=== PATIENT | male | born 1965 | race African-American/Black ===

== ENCOUNTER 2018-12-20 01:17 | Inpatient (IN) | payer BC, MEDICAID ==
[~2018-12-20] VITALS: Ht 170.2 cm; Wt 76.0 kg
[2018-12-20] MEDS ORDERED: ONDANSETRON 2MG/ML, 2ML ONE ×2 (01:37→14:22)
[2018-12-20] MEDS ORDERED: MORPHINE SULFATE 4 MG/ML, 1ML ONE (01:38)
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
[2018-12-20] MEDS ORDERED: ONDANSETRON 2MG/ML, 2ML IVPush ONE (02:00)
[2018-12-20] MEDS ORDERED: MORPHINE SULFATE 4 MG/ML, 1ML IVPush PRN (02:00)
[2018-12-20] MEDS ORDERED: SODIUM CHLORIDE FLUSH 10ML SYR IVF ONE (02:00)
[2018-12-20] MEDS ORDERED: AMPICILLIN/SULBACTAM 3 GM in SODIUM CHLORIDE 0.9% 100 ML IV ONE (02:30)
--- NOTE | 2018-12-20 02:57 | NUR ---
PT RESTING CALMLY. REPORTS IMPROVEMENT IN PAIN WITH MEDICATIONS. SPO2 >90% ON 2L BY NC. PT HYPERTENSIVE, NO HX OF SAME. DENIES KOENIG/CP. ERP AWARE. CHART UP FOR RECHECK
--- NOTE | 2018-12-20 03:12 | NUR ---
ABX INITIATED. PT UPDATED TO POC (ADMIT) AND DEMONSTRATES UNDERSTANDING.
[2018-12-20] MEDS ORDERED: SODIUM CHLORIDE 0.9% 1,000 ML IV SCH (04:14)
[2018-12-20 04:18] VITALS: BP 162/101
[2018-12-20] MEDS: morphine SULFATE 10 MG/ML, 1ML IVPush PRN ×5 (04:46→18:02)
[2018-12-20 05:40] VITALS: BP 177/112
[2018-12-20 05:45] LABS: BASOPHILS # (AUTO) 0.03 x10^3/uL (0-0.1); BASOPHILS % (AUTO) 0 % (0-1); EOSINOPHILS # (AUTO) 0.07 x10^3/uL (0-0.4); EOSINOPHILS % (AUTO) 1 % (1-7); LYMPHOCYTES # (AUTO) 1.19 x10^3/uL (1-3.4); LYMPHOCYTES % (AUTO) 14 % (22-44); MD NO; MEAN CORPUSCULAR HEMOGLOBIN 27.7 pg (27.5-34.5); MEAN CORPUSCULAR HGB CONC 32.3 g/dL (33.2-36.2); MEAN CORPUSCULAR VOLUME 85.8 fL (81-97); MEAN PLATELET VOLUME 9.6 fL (7.4-10.4); MONOCYTES % (AUTO) 9 % (2-9); NEUTROPHILS # (AUTO) 6.39 x10^3/uL (1.8-6.8); NEUTROPHILS % (AUTO) 75 % (42-75); PLATELET COUNT 211 x10^3/uL (130-400); RED BLOOD COUNT 5.33 x10^6/uL (4.38-5.82); RED CELL DISTRIBUTION WIDTH 14.6 % (9.4-14.8)
[2018-12-20 05:59] LABS: ALBUMIN 3.4 g/dL (3.4-5.0); ANION GAP 6 mmol/L (5-15); CALCIUM 8.4 mg/dL (8.5-10.1); CHLORIDE 107 mmol/L (98-107)
[2018-12-20] MEDS: hydrALAzine 20 MG/ML, 1ML IVPush PRN ×3 (06:02→16:27)
[2018-12-20 06:03] LABS: ALANINE AMINOTRANSFERASE 32 U/L (12-78); ALKALINE PHOSPHATASE 96 U/L (45-117); BILIRUBIN,TOTAL 0.3 mg/dL (0.2-1.0); CREATININE 1.17 mg/dL (0.7-1.3); TOTAL PROTEIN 7.2 g/dL (6.4-8.2)
[2018-12-20 06:41] VITALS: BP 105/73
[2018-12-20 06:46] VITALS: BP 114/79
[2018-12-20] MEDS ORDERED: LIDOCAINE 1%-EPI 1:100K, 30ML ONE (12:28)
[2018-12-20] MEDS ORDERED: BALANCED SALT OPHTH IRRIG SOLN 18ML ONE (12:28)
[2018-12-20] MEDS ORDERED: OXYMETAZOLINE NASAL SPRAY 0.05%, 15ML ONE (12:28)
[2018-12-20] MEDS ORDERED: FENTANYL PF 250 MCG/5ML ONE (12:46)
[2018-12-20] MEDS ORDERED: LIDOCAINE 1%-EPI 1:100K, 30ML INFIL ONE (13:11)
[2018-12-20] MEDS ORDERED: LORazepam 2 MG/ML, 1ML IVPush PRN (14:00)
[2018-12-20] MEDS ORDERED: ONDANSETRON ODT 8 MG PO PRN (14:00)
[2018-12-20] MEDS ORDERED: MEPERIDINE/PF 25MG/0.5ML IVPush PRN (14:00)
[2018-12-20] MEDS ORDERED: ONDANSETRON 2MG/ML, 2ML IV PRN (14:00)
[2018-12-20] MEDS ORDERED: ACETAMINOPHEN 325 MG TABLET PO PRN (14:00)
[2018-12-20] MEDS ORDERED: FENTANYL PF 100 MCG/2ML IV PRN (14:00)
[2018-12-20] MEDS ORDERED: OXYcodone 5 MG/5 ML ORAL.SOL UDC PO PRN (14:00)
[2018-12-20] MEDS ORDERED: PROMETHAZINE 25 MG/ML, 1ML IV PRN (14:00)
[2018-12-20] MEDS ORDERED: HYDROmorphone 2 MG/ML, 1ML IVPush PRN (14:00)
[2018-12-20] MEDS ORDERED: GLYCOPYRROLATE 0.2MG/1ML, 5ML ONE (14:22)
[2018-12-20] MEDS ORDERED: NEOSTIGMINE 1 MG/ML, 10ML ONE (14:22)
[2018-12-20] MEDS ORDERED: FENTANYL PF 100 MCG/2ML ONE (14:22)
[2018-12-20] MEDS ORDERED: DEXAMETHASONE 4 MG/ML, 1ML ONE (14:22)
[2018-12-20] MEDS ORDERED: CEFAZOLIN 1,000 MG ONE (14:22)
[2018-12-20] MEDS ORDERED: PROPOFOL 10 MG/ML, 20ML ONE (14:22)
[2018-12-20] MEDS ORDERED: ROCURONIUM 10MG/ML,5ML ONE (14:22)
[2018-12-20] MEDS ORDERED: SUCCINYLCHOLINE 20 MG/ML, 10ML ONE (14:22)
[2018-12-20] MEDS ORDERED: UNASYN MC SCH (17:30)
[2018-12-20] MEDS: POTASSIUM CHLORIDE 20 MEQ in LACTATED RINGERS 1,000 ML IV SCH (18:51)
[2018-12-20] MEDS: AMPICILLIN/SULBACTAM 3 GM in SODIUM CHLORIDE 0.9% 100 ML IV SCH (18:52)
[2018-12-20 19:41] VITALS: BP 152/93
[2018-12-21] MEDS: AMPICILLIN/SULBACTAM 3 GM in SODIUM CHLORIDE 0.9% 100 ML IV SCH ×3 (00:48→12:13)
[2018-12-21 00:56] VITALS: BP 145/73
[2018-12-21] MEDS: morphine SULFATE 10 MG/ML, 1ML IVPush PRN (01:02)
[2018-12-21] MEDS: POTASSIUM CHLORIDE 20 MEQ in LACTATED RINGERS 1,000 ML IV SCH ×2 (06:41→14:12)
[2018-12-21 06:51] LABS: BASOPHILS # (AUTO) 0.06 x10^3/uL (0-0.1); BASOPHILS % (AUTO) 1 % (0-1); EOSINOPHILS % (AUTO) 0 % (1-7); LYMPHOCYTES % (AUTO) 10 % (22-44); MD NO; MEAN CORPUSCULAR VOLUME 84.8 fL (81-97); MEAN PLATELET VOLUME 9.3 fL (7.4-10.4); MONOCYTES # (AUTO) 1.06 x10^3/uL (0.2-0.8); MONOCYTES % (AUTO) 9 % (2-9); NEUTROPHILS # (AUTO) 9.04 x10^3/uL (1.8-6.8); NEUTROPHILS % (AUTO) 80 % (42-75); PLATELET COUNT 227 x10^3/uL (130-400); RED CELL DISTRIBUTION WIDTH 14.3 % (9.4-14.8)
[2018-12-21 07:00] LABS: ANION GAP 4 mmol/L (5-15); CALCIUM 8.8 mg/dL (8.5-10.1); CHLORIDE 106 mmol/L (98-107)
[2018-12-21 07:50] VITALS: BP 76/51
[2018-12-21 10:24] VITALS: BP 153/101
[2018-12-21 12:18] VITALS: BP 142/91
[2018-12-21] MEDS ORDERED: OXYC5TAB3 PO (15:52)
[2018-12-21] MEDS ORDERED: AMOX1TAB64 PO (15:53)
== END 2018-12-21 17:25 | disposition home or self-care (01) | DRG 132 ==
LOC: ED 02:05 → EDIP 03:21 → 4NOR 04:03 → DCLOUNGE 12-21 16:55
PROVIDERS: ADMIT Family Medicine; ATTEND Family Medicine
PROC: 0NST04Z Reposition Right Mandible with Internal Fixation Device, Open Approach (ICD-10-PCS; 2018-12-20)
PROC: 0NSV04Z Reposition Left Mandible with Internal Fixation Device, Open Approach (ICD-10-PCS; principal; 2018-12-20 12:30)
DX: S02.652A Fracture of angle of left mandible, initial encounter for closed fracture (principal); S02.66XB Fracture of symphysis of mandible, initial encounter for open fracture; F12.90 Cannabis use, unspecified, uncomplicated; F17.200 Nicotine dependence, unspecified, uncomplicated; G89.11 Acute pain due to trauma; I10 Essential (primary) hypertension; R13.10 Dysphagia, unspecified; Y04.0XXA Assault by unarmed brawl or fight, initial encounter; Y93.89 Activity, other specified; Y92.89 Other specified places as the place of occurrence of the external cause; Y99.8 Other external cause status
CPT/HCPCS: 36415; 99285; J3490; 70486; 80048; 80053; 85025; 96365; 96375; C1713; G0378; J0295; J0690; J1100; J2405; J2704; J2710; J3010; J3480; J0330; J0360; J2270; J7030; J7120

== ENCOUNTER 2019-02-12 18:22 | Emergency (ER) | payer MEDICAID ==
[~2019-02-12] VITALS: Ht 170.2 cm; Wt 78.0 kg
[~2019-02-12 18:22] MED LIST: AMOX1TAB64 PO; OXYC5TAB3 PO
[2019-02-12] MEDS ORDERED: METOPROLOL (19:10)
[2019-02-12] MEDS ORDERED: AMLODIPINE (19:10)
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
--- NOTE | 2019-02-12 19:38 | NUR ---
pt to ct at this time.
[2019-02-12 19:49] VITALS: BP 150/98
--- NOTE | 2019-02-12 19:49 | NUR ---
PT BACK FROM CT. VSS. RESTING WITH AT BS. NO NEEDS EXPRESSED. CALL [facility] WITHIN REACH. AWIAITNG CT RESULTS.
--- NOTE | 2019-02-12 20:09 | NUR ---
edmd to bs to update on poc. awaiting dispo.
[2019-02-12] MEDS ORDERED: HYDROcodone/APAP 5/325 TABLET ONE (20:22)
[2019-02-12] MEDS ORDERED: HYDROcodone/APAP 5/325 TABLET PO ONE (20:30)
== END 2019-02-12 20:33 | disposition home or self-care (01) ==
LOC: ED 20:20
DX: S02.609A Fracture of mandible, unspecified, initial encounter for closed fracture (principal); X58.XXXA Exposure to other specified factors, initial encounter; Y93.89 Activity, other specified; Y92.89 Other specified places as the place of occurrence of the external cause; Y99.8 Other external cause status
CPT/HCPCS: 70486; 99284

== ENCOUNTER 2019-02-13 15:57 | Emergency (ER) | payer MEDICAID ==
[~2019-02-13] VITALS: Ht 170.2 cm; Wt 76.2 kg
[~2019-02-13 15:57] MED LIST changes: +AMLODIPINE; +METOPROLOL
[2019-02-13] MEDS ORDERED: HYDROcodone/APAP 5/325 TABLET PO ONE (17:00)
[2019-02-13] MEDS ORDERED: HYDROcodone/APAP 5/325 TABLET ONE (17:08)
[2019-02-13 18:35] VITALS: BP 153/103
--- NOTE | 2019-02-13 18:36 | NUR ---
PT STATES PAIN IS "A LITTLE BETTER" POST MEDS. WHEN ASKED ABOUT PAIN SCALE, PT STATES "IT'S ABOUT BACK TO WHAT IT WAS." DISCUSSED OPTIONS FOR OTC PAIN MEDS RECOMMENDED. PT VERBALIZED UNDERSTANDING, D/C'D AMBULATORY.
== END 2019-02-13 18:38 | disposition home or self-care (01) ==
LOC: ED 18:00
DX: G89.11 Acute pain due to trauma (principal); R68.84 Jaw pain
CPT/HCPCS: 99282